=== PATIENT | female | born 1970 | race Caucasian/White ===

== ENCOUNTER 2020-04-26 21:17 | Outpatient (REF) | payer OTHER, SELFPAY ==
[2020-04-26 21:49] LABS: Calculated LDL 86 mg/dL (<100); Cholesterol 164 mg/dL (<200); Glucose 83 mg/dL (74-106); HDL Cholesterol 68 mg/dL (40-60); Triglyceride 51 mg/dL (<150)
== END 2020-04-26 21:37 ==
LOC: NCHCN 21:17
PROVIDERS: PCP Internal Medicine; Visit Provider Family Medicine
DX: Z13.220 Encounter for screening for lipoid disorders (principal); Z13.1 Encounter for screening for diabetes mellitus
CPT/HCPCS: 80061; 82947

== ENCOUNTER 2020-08-02 23:37 | Outpatient (REF) | payer OTHER, SELFPAY ==
[2020-08-05 11:12] LABS: Patient Race White; SARS-CoV-2 RNA Undetected (Undetected); SARS-CoV-2 Specimen Source Nasal
== END 2020-08-02 23:57 ==
LOC: NCHCN 23:37
PROVIDERS: PCP Internal Medicine; Visit Provider Family Medicine
DX: Z11.59 Encounter for screening for other viral diseases (principal)
CPT/HCPCS: U0003